=== PATIENT | female | born 2005 | race Caucasian/White ===

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

== ENCOUNTER → 2023-05-25 11:39 | Outpatient (BNVA) | payer OTHER, SELFPAY | PROVIDERS: Family Provider Family Medicine; PCP Family Medicine; Visit Provider Clinical Nurse Specialist Adult Health | DX: R30.0 Dysuria (principal); N39.0 Urinary tract infection, site not specified | CPT/HCPCS: 81000 ==

== ENCOUNTER 2024-12-10 14:07 | Outpatient (CLI) | payer BC, OTHER, SELFPAY ==
[2024-12-10 14:49] LABS: Basophils % 0.4 %; Eosinophils # 0.1 10^3/uL (0.0-0.8); Eosinophils % 1.2 %; Hematocrit 40.3 % (36-47); Lymphocytes # 1.2 10^3/uL (0.8-4.8); Lymphocytes % 23.7 %; Mean Corpuscular HGB Conc 34.5 g/dL (30-55); Mean Corpuscular Hemoglobin 29.9 pg (27-33); Mean Corpuscular Volume 86.7 fl (85-98); Mean Platelet Volume 10.8 fL (7.4-10.4); Monocytes # 0.3 10^3/uL (0.2-0.9); Monocytes % 6.4 %; Neutrophils % 68.1 %; Nucleated Red Blood Cells % 0 %; Platelet Count 179 10^3/cmm (157-399); Red Blood Count 4.65 10^6/uL (3.85-5.65); Red Cell Distribution Width 12.7 % (12.1-15.1); White Blood Count 5.14 10^3/uL (3.29-11.43)
[2024-12-10 15:03] LABS: HCG Qualitative Urine. Negative (Negative)
[2024-12-10 15:11] LABS: Alanine Aminotransferase 14 U/L (0-33); Albumin Level 4.7 g/dL (3.5-5.2); Alkaline Phosphatase 60 U/L (35-105); Aspartate Amino Transferase 18 U/L (0-32); Chol HDL Ratio 3.13 mg/dL (0.0-4.40); Cholesterol 169 mg/dL (0-200); Globulin 2.7 g/dL (1.3-4.6); HDL Cholesterol 54 mg/dL (60-100); LDL Cholesterol Calculated 76 mg/dL (50-129); LDL HDL Ratio 1.41 RATIO (0.00-3.22); Total Bilirubin 0.4 mg/dL (0.15-1.2); Total Protein 7.4 g/dL (6.6-8.7); Triglycerides 193 mg/dL (0-150)
== END 2024-12-10 14:08 | disposition home or self-care (01) ==
LOC: LAB 14:23
PROVIDERS: PCP Family Medicine; Visit Provider Nurse Practitioner Family
DX: L70.0 Acne vulgaris (principal)
CPT/HCPCS: 36415; 80061; 80076; 81025; 85025

== ENCOUNTER 2025-01-09 10:08 | Outpatient (CLI) | payer BC, OTHER, SELFPAY ==
[2025-01-09 10:38] LABS: HCG Qualitative Urine. Negative (Negative)
== END 2025-01-09 10:09 | disposition home or self-care (01) ==
PROVIDERS: PCP Family Medicine; Visit Provider Nurse Practitioner Family
DX: L70.0 Acne vulgaris (principal)
CPT/HCPCS: 81025

== ENCOUNTER 2025-02-06 09:13 | Outpatient (CLI) | payer BC, OTHER, SELFPAY ==
[2025-02-06 10:13] LABS: Basophils % 0.4 %; Eosinophils # 0.1 10^3/uL (0.0-0.8); Eosinophils % 1.1 %; Hematocrit 40.4 % (36-47); Lymphocytes # 1.3 10^3/uL (0.8-4.8); Lymphocytes % 27.5 %; Mean Corpuscular HGB Conc 34.4 g/dL (30-55); Mean Corpuscular Hemoglobin 29.6 pg (27-33); Mean Corpuscular Volume 86.1 fl (85-98); Mean Platelet Volume 10.5 fL (7.4-10.4); Monocytes # 0.3 10^3/uL (0.2-0.9); Monocytes % 5.8 %; Neutrophils # 2.99 10^3/uL (1.8-7.7); Neutrophils % 64.8 %; Nucleated Red Blood Cells % 0 %; Platelet Count 210 10^3/cmm (157-399); Red Blood Count 4.69 10^6/uL (3.85-5.65); Red Cell Distribution Width 12.4 % (12.1-15.1); White Blood Count 4.62 10^3/uL (3.29-11.43)
[2025-02-06 10:31] LABS: HCG Quantitative < 1.00 mIU/mL
[2025-02-06 10:42] LABS: Alanine Aminotransferase 12 U/L (0-33); Albumin Level 4.4 g/dL (3.5-5.2); Alkaline Phosphatase 65 U/L (35-105); Aspartate Amino Transferase 17 U/L (0-32); Chol HDL Ratio 3.73 mg/dL (0.0-4.40); Cholesterol 179 mg/dL (0-200); Globulin 2.6 g/dL (1.3-4.6); HDL Cholesterol 48 mg/dL (60-100); LDL Cholesterol Calculated 113 mg/dL (50-129); LDL HDL Ratio 2.35 RATIO (0.00-3.22); Total Bilirubin 0.5 mg/dL (0.15-1.2); Triglycerides 92 mg/dL (0-150)
== END 2025-02-06 09:14 | disposition home or self-care (01) ==
LOC: LAB 09:15
PROVIDERS: PCP Family Medicine; Visit Provider Nurse Practitioner Family
DX: L70.0 Acne vulgaris (principal)
CPT/HCPCS: 80061; 80076; 84702; 85025

== ENCOUNTER 2025-03-06 08:30 | Outpatient (CLI) | payer BC, SELFPAY ==
[2025-03-06 09:04] LABS: Basophils % 0.5 %; Eosinophils % 0.7 %; Hematocrit 44.1 % (36-47); Lymphocytes # 1.1 10^3/uL (0.8-4.8); Lymphocytes % 25.9 %; Mean Corpuscular Hemoglobin 30.3 pg (27-33); Mean Corpuscular Volume 89.1 fl (85-98); Mean Platelet Volume 10.7 fL (7.4-10.4); Monocytes # 0.3 10^3/uL (0.2-0.9); Monocytes % 7.7 %; Neutrophils # 2.71 10^3/uL (1.8-7.7); Nucleated Red Blood Cells % 0 %; Platelet Count 194 10^3/cmm (157-399); Red Blood Count 4.95 10^6/uL (3.85-5.65); Red Cell Distribution Width 13.2 % (12.1-15.1); White Blood Count 4.17 10^3/uL (3.29-11.43)
[2025-03-06 09:26] LABS: HCG Quantitative < 1.00 mIU/mL
[2025-03-06 09:46] LABS: Alanine Aminotransferase 16 U/L (0-33); Alkaline Phosphatase 73 U/L (35-105); Aspartate Amino Transferase 23 U/L (0-32); Chol HDL Ratio 3.45 mg/dL (0.0-4.40); Cholesterol 183 mg/dL (0-200); Globulin 2.9 g/dL (1.3-4.6); HDL Cholesterol 53 mg/dL (60-100); LDL Cholesterol Calculated 110 mg/dL (50-129); LDL HDL Ratio 2.08 RATIO (0.00-3.22); Total Bilirubin 0.8 mg/dL (0.15-1.2); Total Protein 7.9 g/dL (6.6-8.7); Triglycerides 98 mg/dL (0-150)
== END 2025-03-06 08:31 | disposition home or self-care (01) ==
PROVIDERS: PCP Family Medicine
DX: L70.0 Acne vulgaris (principal)
CPT/HCPCS: 36415; 80061; 80076; 84702; 85025

== ENCOUNTER 2025-04-03 10:17 | Outpatient (CLI) | payer BC, OTHER, SELFPAY ==
[2025-04-03 11:31] LABS: HCG Quantitative < 1.00 mIU/mL
== END 2025-04-03 10:18 | disposition home or self-care (01) ==
LOC: LAB 10:21
PROVIDERS: PCP Family Medicine; Visit Provider Nurse Practitioner Family
DX: L70.0 Acne vulgaris (principal)
CPT/HCPCS: 84702

== ENCOUNTER 2025-05-04 16:01 | Outpatient (CLI) | payer BC, OTHER, SELFPAY ==
[2025-05-04 16:28] LABS: HCG Qualitative Urine. Negative (Negative)
== END 2025-05-04 16:02 | disposition home or self-care (01) ==
LOC: LAB 16:05
PROVIDERS: PCP Family Medicine; Visit Provider Nurse Practitioner Family
DX: L70.0 Acne vulgaris (principal); L90.5 Scar conditions and fibrosis of skin; Z79.899 Other long term (current) drug therapy; L85.3 Xerosis cutis; K13.0 Diseases of lips; R04.0 Epistaxis; M79.10 Myalgia, unspecified site
CPT/HCPCS: 81025

== ENCOUNTER 2025-06-03 09:35 | Outpatient (CLI) | payer BC, OTHER, SELFPAY ==
[2025-06-03 10:13] LABS: Hematocrit 39.6 % (36-47); Hemoglobin 13.60 g/dL (11.27-16.99); Mean Corpuscular HGB Conc 34.3 g/dL (30-55); Mean Corpuscular Hemoglobin 30.4 pg (27-33); Mean Corpuscular Volume 88.4 fl (85-98); Nucleated Red Blood Cells % 0 %; Platelet Count 148 10^3/cmm (157-399); Red Blood Count 4.48 10^6/uL (3.85-5.65); White Blood Count 5.68 10^3/uL (3.29-11.43)
[2025-06-03 10:52] LABS: Alanine Aminotransferase 12 U/L (0-33); Albumin Level 4.4 g/dL (3.5-5.2); Alkaline Phosphatase 52 U/L (35-105); Aspartate Amino Transferase 16 U/L (0-32); Cholesterol 155 mg/dL (0-200); Globulin 2.4 g/dL (1.3-4.6); HDL Cholesterol 48 mg/dL (60-100); Total Protein 6.8 g/dL (6.6-8.7); Triglycerides 41 mg/dL (0-150)
== END 2025-06-03 09:36 | disposition home or self-care (01) ==
LOC: LAB 09:36
PROVIDERS: PCP Family Medicine; Visit Provider Nurse Practitioner Family
DX: L70.0 Acne vulgaris (principal)
CPT/HCPCS: 36415; 80061; 80076; 84702; 85025

== ENCOUNTER 2025-07-02 08:52 | Outpatient (CLI) | payer BC, OTHER, SELFPAY ==
[2025-07-02 09:20] LABS: HCG Qualitative Urine. Negative (Negative)
== END 2025-07-02 08:53 | disposition home or self-care (01) ==
LOC: LAB 08:53
PROVIDERS: PCP Family Medicine; Visit Provider Nurse Practitioner Family
DX: L70.0 Acne vulgaris (principal)
CPT/HCPCS: 81025

== ENCOUNTER 2025-07-22 07:33 | Outpatient (RCR) | payer BC, OTHER, SELFPAY | END 2025-08-04 23:59 | disposition home or self-care (01) | LOC: SPT 07:33 | PROVIDERS: PCP Family Medicine; Visit Provider Family Medicine | DX: M53.3 Sacrococcygeal disorders, not elsewhere classified (principal); G89.29 Other chronic pain | CPT/HCPCS: 97110; 97161 ==

== ENCOUNTER 2025-07-30 16:27 | Outpatient (CLI) | payer BC, OTHER, SELFPAY ==
[2025-07-30 19:13] LABS: HCG Qualitative Urine. Negative (Negative)
== END 2025-07-30 16:28 | disposition home or self-care (01) ==
LOC: LAB 16:30
PROVIDERS: PCP Family Medicine; Visit Provider Nurse Practitioner Family
DX: L70.0 Acne vulgaris (principal); L90.5 Scar conditions and fibrosis of skin; Z79.899 Other long term (current) drug therapy; L85.3 Xerosis cutis; K13.0 Diseases of lips; R04.0 Epistaxis; M79.10 Myalgia, unspecified site
CPT/HCPCS: 81025

== ENCOUNTER 2025-08-05 06:30 | Outpatient (RCR) | payer BC, OTHER, SELFPAY | END 2025-09-04 23:59 | disposition home or self-care (01) | LOC: SPT 06:30 | PROVIDERS: PCP Family Medicine; Visit Provider Family Medicine | DX: M53.3 Sacrococcygeal disorders, not elsewhere classified (principal) | CPT/HCPCS: 97110 ==

== ENCOUNTER 2025-08-27 16:25 | Outpatient (CLI) | payer BC, OTHER, SELFPAY | END 2025-08-27 16:26 | disposition home or self-care (01) | LOC: LAB 16:25 | PROVIDERS: PCP Family Medicine; Visit Provider Nurse Practitioner Family | DX: L70.0 Acne vulgaris (principal); L90.5 Scar conditions and fibrosis of skin; Z79.899 Other long term (current) drug therapy; L85.3 Xerosis cutis; K13.0 Diseases of lips; R04.0 Epistaxis | CPT/HCPCS: 36415; 84702 ==

== ENCOUNTER 2025-09-09 15:00 | Outpatient (CLI) | payer BC, OTHER, SELFPAY ==
--- NOTE | 2025-09-09 15:15 | MR_ITS ---
WS: [id number] MRI SACRUM WITHOUT CONTRAST. COMPARISON: Lumbar spine radiograph 08/04/2020 Multiplanar, multisequence imaging is performed without contrast. Normal SI joints. No edema along the SI joints or sacroiliitis. No erosions identified. Sacral nerve roots are appropriately positioned. There is no mass effect upon the sacral nerve roots. There is a very small, 11 mm nerve root sleeve diverticulum just to the RIGHT of midline at S2. Typically these are incidental findings. The lower lumbar spine, L4-5 and L5-S1 is negative. Urinary bladder is well distended. There are multiple small follicles in each ovary. Dominant follicle in the RIGHT ovary 2.7 cm. Small amount of free fluid in the pelvis is probably from a ruptured follicle. Normal anteverted uterus. MR/MR sacrum wo con* [id number] IMPRESSION: 1. Normal sacrum without evidence for sacroiliitis. 2. No sacroiliitis. 3. Incidental note is made of an 11 mm sacral nerve root sleeve diverticulum a t S2. 4. Multiple small follicles within each ovary. The number of follicles is diff icult to quantify by MRI. The number of follicles does appear to be approaching polycystic ovarian syndrome. Transvaginal pelvic ultrasound may be of benefit to further evaluate the ovaries. 5. Small amount of physiologic free fluid in the cul-de-sac.
== END 2025-09-09 15:01 | disposition home or self-care (01) ==
LOC: RAD 15:00
PROVIDERS: PCP Family Medicine; Visit Provider Family Medicine
DX: M53.3 Sacrococcygeal disorders, not elsewhere classified (principal); G89.29 Other chronic pain; R18.8 Other ascites; G54.8 Other nerve root and plexus disorders; R93.89 Abnormal findings on diagnostic imaging of other specified body structures
CPT/HCPCS: 72148

== ENCOUNTER 2025-10-08 16:05 | Outpatient (CLI) | payer BC, OTHER, SELFPAY ==
[2025-10-08 16:57] LABS: HCG Qualitative Urine. Negative (Negative)
== END 2025-10-08 16:06 | disposition home or self-care (01) ==
LOC: LAB 16:05
PROVIDERS: PCP Family Medicine; Visit Provider Nurse Practitioner Family
DX: Z70.0 Counseling related to sexual attitude (principal)
CPT/HCPCS: 81025